=== PATIENT | male | born 1985 | race Caucasian/White ===

== ENCOUNTER → 2017-02-07 10:22 | Outpatient (CLI) | payer OTHER | END | disposition home or self-care (01) | LOC: D.RAD 10:22 | DX: Z02.71 Encounter for disability determination (principal) ==

== ENCOUNTER 2018-02-18 18:27 | Emergency (ER) | payer MEDICAID ==
[2018-02-18 20:40] LABS: APPEARANCE CLEAR (CLEAR); BILIRUBIN NEGATIVE (NEGATIVE); COLOR YELLOW (YELLOW); GLUCOSE NEGATIVE (NEGATIVE); KETONE MODERATE mg/dL (NEGATIVE); NITRITE NEGATIVE (NEGATIVE); PROTEIN NEGATIVE (NEGATIVE); UROBILINOGEN NORMAL (NORMAL)
== END 2018-02-18 21:40 | disposition home or self-care (01) ==
LOC: D.ER 18:27
PROVIDERS: Nurse Practitioner Family
DX: M54.5 Low back pain (principal)